=== PATIENT | male | born 1990 | race Two or more races ===

== ENCOUNTER 2016-07-14 23:21 | Emergency (ER) | payer OTHER ==
[2016-07-15] MEDS ORDERED: KETOROLAC TROMETHAMINE 60 MG/2 ML VIAL ONE (02:18)
[2016-07-15] MEDS ORDERED: OXYCODONE/ACETAMINOPHEN 5/325 MG TABLET ONE (02:18)
--- NOTE | 2016-07-15 08:05 | RAD ---
Clinical Indication: Pain, patient tripped and fell while running tonight. Initial encounter. Comparison: None. Findings: Three views of the left shoulder. Bones: No fracture or dislocation. Joints: Unremarkable. Soft tissue: Normal. Limited evaluation of the left hemithorax: Unremarkable. Impression: No fracture or dislocation.
== END 2016-07-15 02:50 | disposition home or self-care (01) ==
LOC: ED 23:21
DX: S43.102A Unspecified dislocation of left acromioclavicular joint, initial encounter (principal); J45.909 Unspecified asthma, uncomplicated; W01.10XA Fall on same level from slipping, tripping and stumbling with subsequent striking against unspecified object, initial encounter; Y93.01 Activity, walking, marching and hiking; Y92.810 Car as the place of occurrence of the external cause